=== PATIENT | male | born 1975 | race Caucasian/White ===

== ENCOUNTER 2024-09-08 21:30 | Emergency (ER) | payer OTHER ==
[~2024-09-08] VITALS: Ht 182.9 cm; Wt 90.7 kg
[2024-09-08 23:53] LABS: Influenza A, PCR NEGATIVE (NEGATIVE); Influenza B, PCR NEGATIVE (NEGATIVE); Resp Syncytial Virus, PCR NEGATIVE (NEGATIVE); SARS-Cov-2 (COVID-19) PCR, MMC NEGATIVE (NEGATIVE)
[2024-09-09] MEDS ORDERED: BENADRYL25 MG (02:03)
[2024-09-09] MEDS ORDERED: Ibuprofen 400 MG Tab PO ONE (03:05)
== END 2024-09-09 03:21 | disposition home or self-care (01) ==
LOC: ER 21:30
PROVIDERS: Physician Assistant
DX: R53.81 Other malaise (principal)
CPT/HCPCS: 0241U; 99283; A9270

== ENCOUNTER 2024-09-09 13:22 | Inpatient (IN) | payer OTHER ==
[~2024-09-09 13:22] MED LIST: BENADRYL25 MG
[2024-09-09] MEDS ORDERED: LORazepam 2 MG Tab PO PRN ×2 (16:40)
[2024-09-09] MEDS ORDERED: HydrOXYzine Pamoate 50 MG Cap PO PRN (16:40)
[2024-09-09] MEDS ORDERED: OLANZapine ODT 10 MG Tab MM PRN (16:45)
[2024-09-09] MEDS ORDERED: RisperiDONE 1 MG Tab PO PRN (16:45)
[2024-09-09] MEDS ORDERED: TraZODone HCl 50 MG Tab PO PRN (16:45)
[2024-09-09] MEDS ORDERED: FLU VACC TS2024-25(6MOS UP)/PF 45 MCG/0.5 ML SYRINGE IM SCH (16:45)
--- NOTE | 2024-09-09 18:12 | NUR ---
NEW ADMIT PT ADMITTED FROM [facility]. PT REPORTS REASON FOR ADMIT WAS SI BUT BRIEF THOUGHTS OF STEPPING IN FRONT OF CAR. PT DENIES CURRENT THOUGHTS AND REPORTS WANTING TO HURRY HOME TO GET HIS CAT. PT APPEARS TO HAVE DELUSIONS OF GRANDEUR R/T SELF AND FATHER. PT REPORTS SELF HX OF PROFESSIONAL FOOTBALL, KID NAPPED CHILD, AND FATHER [place]. PT REPORTS MINIMAL FAMILY SUPPORT W/ ONE BROTHER, AUNT, AND COUSIN. PT DENIES HX OF MH DX OR HX OF SI. PT REPORTS RECENT HOMELESS, COLD AND HOPELESSNESS. PT DENIES SCHEDULED MEDICATIONS AND ONLY PRN BENADRYL AND TYLENOL. PT DOES REPORT PANIC ATTACKS AND HIS CAT HELPS CALM HIM. PT REPORTS HX OF NIGHTMARES W/ RECENT 3-5 HOURS RESTLESS SLEEP NIGHTLY. PT REFUSES FLU VACCINE AT THIS TIME BUT REPORTS FULLY VACCINATED FOR COVID W/ BOOSTERS. WILL REPORT TO ONCOMING SHIFT AND CONTINUE TO MONITOR PER UNIT PROTOCOLS.
[2024-09-09 21:57] VITALS: BP 131/78
--- NOTE | 2024-09-10 03:35 | NUR ---
PATIENT WAS IN THE MILIEU TALKING WITH SELECT PEER AT THE BEGINNING OF THE SHIFT. HE JOINED THE GROUP IN THE DINING ROOM FOR SNACK TIME. HE STATED THAT HIS LEGS WERE HURTING AND THAT IT WAS "FROM BEING HOMELESS AND GETTING TOO COLD". HE SPOKE WITH DELUSIONS OF GRANDEUR, TELLING SELECT PEER THAT HIS FATHER WAS A SECRET OPERATIVE AND THAT HE GRADUATED FROM A PRESTIGIOUS SCHOOL. HE WAS PLEASANT AND COOPERATIVE WITH EVENING MEDICATIONS. HE WENT TO BED AFTER SNACK AND MEDICATION TIME AND WAS NOTED TO BE RESTING QUIETLY WITH EYES CLOSED AND RESPIRATIONS CONFIRMED. HE HAD NO S/SX SUICIDAL IDEATION OR SELF HARM. CONTINUING TO MONITOR WITH Q15 MINUTE SAFETY CHECKS.
--- NOTE | 2024-09-10 09:17 | NUR ---
PT A/OX4. COOPERATIVE. [facility] GOOD. STATES " I'M DOING FINE." EXPRESSED THAT HE HAD A GOOD NIGHT AND WAS ABLE TO SLEEP. EXPRESSES THAT HE WANTS TO GO BACK TO [place] WITH HIS CAT.. HE SAID HIS CAT IS HIS THERAPY. HE DENIES SI. HE SAID THAT HE NEVER WAS REALLY 'ALL THAT SUICDIAL, I WAS JUST MOUTHING OFF" LET HIM KNOW THAT IS A VERY SERIOUS SUBJECT TAKEN BY PEOPLE SO THAY CAN BE HELPED. HE SAID "I KNOW,BUT I DID[place]'T LIKE IT [place], I WAS UNCOMFORTABLE THERE." STATES HE HAS A PLACE TO GO IN [place]. 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 EDUCATED ON THE PROGRAM HERE. VERBAL UNDERSTANDING RETURNED.
[2024-09-10] MEDS ORDERED: Ibuprofen 400 MG Tab PO PRN (11:10)
--- NOTE | 2024-09-10 14:14 | NUR ---
PROVIDER CONSULT DR. DAWKINS NOTIFIED OF CONSULT PLACED
--- NOTE | 2024-09-10 17:05 | NUR ---
SHIFT SUMMARY: PT COOPERATIVE AND PLEASANT. INTERACTED WITH PEERS. IS WORRIED ABOUT HIS CAT. HE WANTS TO GET A BUS TICKET AND TO GO HOME [place]. STATES HE MADE A MISTAKE IN COMING TO [place]. ADVIL EFFECTIVE TO BRING LEG AND JOINT PAIN DOWN TO 2/10 FROM 5/10. STATES HE HAS A HIGH TOLANCE FOR PAIN. ATE MEALS AND SNACKS. DR CHOW INTO SEE PT HE HAS SPOTS OF DRY AREAS ON HIS LEGS ONLY. FUNGAL CREAM ORDERED. IN DINING AREA HAVING DINNER. WILL CONTINUE TO MONITOR.
[2024-09-10 18:55] VITALS: BP 119/79
[2024-09-10 19:46] VITALS: BP 131/84
[2024-09-10] MEDS ORDERED: Clobetasol Prop 0.05% Cream 15 gm TOP SCH (21:00)
[2024-09-10] MEDS ORDERED: QUEtiapine Fumarate 50 MG TAB PO SCH (21:00)
--- NOTE | 2024-09-11 04:21 | NUR ---
PATIENT WAS UP IN THE MILIEU, WANDERING BETWEEN THE GROUP ROOM AND HALLWAY. HE SETTLED IN AND WATCHED THE MOVIE WITH STAFF AND PEERS, GOING INTO THE DINING ROOM FOR SNACK TIME, THEN COMING BACK TO FINISH THE MOVIE. HE WAS PLEASANT AND COOPERATIVE, AND COMPLIANT WITH EVENING MEDICATIONS. HE WAS ABLE TO MAKE NEEDS KNOWN. HE WENT TO BED AFTER THE MOVIE, AND WAS NOTED TO BE RESTING QUIETLY WITH EYES CLOSED AND RESPIRATIONS CONFIRMED. HE HAD NO S/SX SUICIDAL IDEATION OR SELF HARM THIS SHIFT. CONTINUING TO MONITOR WITH SAFETY CHECKS Q15 MINUTES.
[2024-09-11 08:53] VITALS: BP 131/75
--- NOTE | 2024-09-11 17:44 | NUR ---
SHIFT SUMMARY PT HAS DENIED ANY SI, HI, AVH. HE IS ENGAGED AND COOPERATIVE WITH CARE. HE VOICES CONCERN REGARDING HIS CAT AND HIS MOTHER WHO IS CARING FOR HIS CAT. PT HAS REPORTED PAIN TO HIS BACK AND BILATERAL LOWER EXTREMITIES. HE WAS MEDICATED X2 PER PRN ORDERS.
[2024-09-11] MEDS ORDERED: QUEtiapine Fumarate 100 MG Tab PO SCH (21:00)
[2024-09-11 22:11] VITALS: BP 132/04
--- NOTE | 2024-09-12 04:22 | NUR ---
Jairo in dayroom watching tv with peers and staff, appears unkempt with dirty scrubs, calm and cooperative. Patient denied SI/HI/AVTH and pain this shift. Pt reported he had a good day, and is ready to go back to [place] and figure his life out. Pt stated he also wants to see the SW today to talk about available resources. Pt ate snack, took HS medications, and requested to sit in the sensory room. Pt later went to his room where he fell asleep with normal chest rise and fall observed. Safety checks maintained at 15-minute intervals throughout the shift.
[2024-09-12 08:15] VITALS: BP 128/77
[2024-09-12] MEDS ORDERED: SUMAtriptan Succinate 25 MG Tab PO PRN (15:10)
--- NOTE | 2024-09-12 16:18 | NUR ---
SHIFT SUMMARY PT AA&OX4. COMPLIANT WITH MEDICATION AND CARE. 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 PT ENCOURAGED TO ALLOW RN TO CONSULT DENTAL HYGIENIST BUT CLIENT DENIED. HE REPORTS HE DOES NOT LIKE "PEOPLE IN HIS MOUTH" HE DENIES PAIN. CREAM APPLIED TO LEGS. PT REPORTS HEADACHES AND NIGHTMARES. HOSPITALIST ORDERED SUMITRITIN. DR. MONCADA NOTIFIED. PT LOCKSTITCH LINING SETTER REPORTS PT IS ON THE AUTISM SPECTUM. SUSAN IS EXPLORING [employer]. PT HAS BEEN UP WITH MILIEU, GROUPS AND MEALS. SPEECH AND EYE CONTACT APPROPRIATE. DENIES CURRENT SI, AVH. HE DENIES ANY CURRENT NEEDS. WILL CONTINUE POC.
[2024-09-12 20:56] VITALS: BP 129/79
--- NOTE | 2024-09-13 04:07 | NUR ---
PATIENT WAS UP IN THE GROUP ROOM WATCHING TELEVISION WITH PEERS AND STAFF AT THE BEGINNING OF THE SHIFT. HE STATED THAT HE HAD A HEADACHE, BUT WHEN ASKED IF HE WANTED IBUPROFEN OR SUMATRAPIN, HE STATED THAT HE DID NOT, HE WANTED "SOMETHING FOR ALLERGIES". HE WAS TOLD THAT VISTARIL IS ON HIS PRN LIST AND HE WANTED IT WITH HIS EVENING MEDICATIONS. IT WAS GIVEN WITH GOOD EFFECT. HE STATED THAT HIS LEGS HAD BEEN HURTING HIM TODAY, BUT "IT'S HELPING TO SIT DOWN AND PUT THEM UP". HE HAD THEM UP ON A CHAIR. HE WAS PLEASANT AND COOPERATIVE WITH CARES. HE WAS COMPLIANT WITH EVENING MEDICATIONS. HE ENJOYED A SNACK IN THE DINING ROOM WITH PEERS. HE WENT TO BED AFTER THE MOVIE AND WAS NOTED TO BE RESTING QUIETLY WITH EYES CLOSED AND RESPIRATIONS CONFIRMED. HE HAD NO S/SX SUICIDAL IDEATION OR SELF HARM THIS SHIFT. CONTINUING TO MONITOR WITH SAFETY CHECKS Q15 MINUTES.
[2024-09-13 08:39] VITALS: BP 125/90
--- NOTE | 2024-09-13 18:18 | NUR ---
SHIFT SUMMARY PT DENIES SI, HI, REPORTED THAT HE HAS AUDITORY HALLUCINATIONS, THAT HE HEARS BACKGROUND NOISE ALL THE TIME THAT SOUNDS LIKE A DISTANT TV. THIS MORNING HE REPORTED FEELING ANXIOUS AND RECEIVED HYDROXYZINE WITH GOOD EFFECT. LATER STATED THAT HE FEELS MUCH BETTER. HE ATTENDED GROUP AND PARTICIPATED.
--- NOTE | 2024-09-13 18:26 | NUR ---
SHIFT SUMMARY PT REPORTED HE HAD A GOOD NIGHT, SLEPT WELL AND FELT GOOD. HE DENIES ANY SI, HI, AVH. HE ATTENDED 2 OUT OF 3 GROUPS WITH GOOD PARTICIPATION, HE HAS BEEN PLEASANT AND COOPERATIVE. HE HAD A VISIT WITH HIS THIS AFTERNOON AND STATED "IT WENT REALLY WELL." HE IS CURRENTLY IN THE GROUP ROOM, WATCHING A MOVIE.
[2024-09-13 20:13] VITALS: BP 137/78
[2024-09-13] MEDS ORDERED: QUEtiapine Fumarate 100 MG Tab PO SCH (21:00)
--- NOTE | 2024-09-14 04:15 | NUR ---
PATIENT WAS IN THE MILIEU AT THE BEGINNING OF THE SHIFT. HE WATCHED A MOVIE WITH STAFF AND PEERS. HE WAS ABLE TO MAKE NEEDS KNOWN, AND STATED THAT HE HAD A SORE RIGHT HIP. HE WAS GIVEN IBUPROFEN WITH GOOD EFFECT. HE WAS PLEASANT AND COOPERATIVE WITH CARES. HE WENT TO THE DINING AREA TO HAVE A SNACK WITH STAFF AND PEERS. HE WATCHED THE REST OF THE MOVIE, AND THEN WENT TO BED, WHERE HE WAS NOTED TO BE RESTING QUIETLY WITH EYES CLOSED AND RESPIRATIONS CONFIRMED. HE HAD NO S/SX SUICIDAL IDEATION OR SELF HARM THIS SHIFT. CONTINUING TO MONITOR WITH SAFETY CHECKS Q15 MINUTES
[2024-09-14 09:41] VITALS: BP 136/75
--- NOTE | 2024-09-14 13:32 | NUR ---
Pt Discharge Information Pt is getting a ride from [employer] to [facility] where his providers and case management team are located to help assist him further. Transport will arrive at 1pm 09/15/24.
--- NOTE | 2024-09-14 18:36 | NUR ---
SHIFT SUMMARY PT PLEASANT AND COOPERATIVE. PT PLANS FOR DISCHARGE TOMORROW. PT C/O HEAD ACHE, BODY ACHES, AND ALLERGIES TODAY. PT RECEIVED IBU 800MG WITH SOME RELIEF. PT PARTICIPATING W/ PEERS AND STAFF W/ GAMES AND GROUPS. NO ACUTE CHANGES. WILL CONTINUE TO MONITOR AND PROVIDE SUPPORT NECESSARY
[2024-09-14 20:17] VITALS: BP 148/78
--- NOTE | 2024-09-15 04:14 | NUR ---
PATIENT WAS IN THE GROUP ROOM WITH STAFF AND PEERS AT THE BEGINNING OF THE SHIFT, WATCHING A MOVIE. HE JOINED THE GROUP IN THE DINING ROOM FOR SNACK TIME. HE WAS COMPLIANT WITH MEDICATIONS. HE WAS PLEASANT AND COOPERATIVE WITH CARES. HE WAS ABLE TO MAKE NEEDS KNOWN. HE WENT TO BED AFTER THE MOVIE AND WAS NOTED TO BE RESTING QUIETLY WITH EYES CLOSED AND RESPIRATIONS CONFIRMED. HE HAD NO S/SX SUICIDAL IDEATION OR SELF HARM THIS SHIFT. CONTINUING TO MONITOR WITH Q15 MINUTE SAFETY CHECKS
[2024-09-15 08:23] VITALS: BP 141/75
[2024-09-15] MEDS ORDERED: QUET100 PO (11:27)
--- NOTE | 2024-09-15 13:25 | NUR ---
DISCHARGE PT DISCHARGED VIA [facility] TO [facility]. PT REPORTS UNSURE OF RETURN TO [place] R/T HOMELESSNESS. UPON DISCHARGE PT REPORTS MISSING BELONGINGS FROM ER. UNABLE TO LOCATE SAID BELONGINGS W/ ER STAFF. 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 V/U BY PATIENT. PT ESCORTED TO [facility] BY A STAFF.
--- NOTE | 2024-09-15 15:20 | NUR ---
PT BELONGINGS NOTIFIED BY PATIENT THAT HIS BELONGINGS HAVE BEEN LOCATED BY SECURITY. I SPOKE WITH SECURITY AND INFORMED THAT PT HAS APPROX 3 BAGS OF BELONGINGS IN THE DECONTAMINATION STORAGE. CALL TO PATIENT [employer] AND LEFT MESSAGE TO RETURN CALL. INQUIRING ABOUT ASSISTANCE IN GETTING PATIENT BELONGINGS RETURNED TO HIM. PT REQUESTED ITEMS SENT TO Get In AND [employer] ADDRESS HE DOES NOT HAVE AN ADDRESS AT THIS TIME. PT NUMBER IS [phone]
== END 2024-09-15 13:17 | disposition home or self-care (01) | DRG 885 ==
LOC: BHU 13:22
PROVIDERS: ADMIT Psychiatry & Neurology Psychiatry
DX: F33.1 Major depressive disorder, recurrent, moderate (principal); Z59.00 Homelessness unspecified; R45.851 Suicidal ideations; R21 Rash and other nonspecific skin eruption; F43.10 Post-traumatic stress disorder, unspecified; R51.9 Headache, unspecified; F43.21 Adjustment disorder with depressed mood; Z88.8 Allergy status to other drugs, medicaments and biological substances; Z79.899 Other long term (current) drug therapy
CPT/HCPCS: 36415; 83036; 83718; A9270